=== PATIENT | female | born 1975 | race Caucasian/White ===

== ENCOUNTER → 2016-07-25 09:20 | Outpatient (CLI) | payer OTHER ==
[2016-01-22 19:59] VITALS: BMI 41.3
[~2016-07-25 09:20] MED LIST: IBUPROFEN600 MG PO; LEVOXYL50 MCG PO; NEXIUM40 MG PO; PERCOCET 5-3251 TAB PO
== END | disposition home or self-care (01) ==
LOC: D.MRI 09:20
DX: G64 Other disorders of peripheral nervous system (principal)